=== PATIENT | male | born 1965 | race Caucasian/White ===

== ENCOUNTER 2016-11-10 16:35 | Inpatient (IN) ==
[2016-11-10] MEDS ORDERED: TUBERSOL ID ONE (17:55)
[2016-11-10] MEDS ORDERED: IMODIUM PO PRN (17:55)
[2016-11-10] MEDS ORDERED: M.V.I.-12 10 ML, FOLIC ACID 1 MG, MAGNESIUM SULFATE 1 GM, THIAMINE 100 MG in NS 1,000 ML IV ONE (17:55)
[2016-11-10] MEDS ORDERED: TYLENOL PO PRN (17:55)
[2016-11-10] MEDS ORDERED: PHENERGAN PO PRN (17:55)
[2016-11-10] MEDS ORDERED: MAALOX PLUS LIQUID PO PRN (17:55)
[2016-11-10] MEDS ORDERED: AMBIEN PO PRN (17:55)
[2016-11-10] MEDS ORDERED: SALINE LOCK IV FLUID XX ONE (17:55)
[2016-11-10] MEDS ORDERED: SENOKOT PO PRN (17:55)
[2016-11-10] MEDS ORDERED: BENTYL PO PRN (17:55)
[2016-11-10] MEDS ORDERED: ZOFRAN IV PRN (17:55)
[2016-11-10] MEDS ORDERED: DULCOLAX PR PRN (17:55)
[2016-11-10 18:38] LABS: MANUAL DIFF NEEDED? NO
[2016-11-10 18:42] LABS: BASO% 0.3 % (0.0-0.8); HEMATOCRIT 38.1 % (42.0-52.0); HEMOGLOBIN 13.1 g/dL (14.0-18.0); LYMPH# 1.33 X1000 (1.2-3.4); LYMPH% 20.9 % (20.5-51.1); MCH 29.9 PG (27-31); MCHC 34.4 g/dL (33-37); MONO# 0.45 X1000 (0.11-0.59); MONO% 7.1 % (1.7-9.3); MPV 9.9 FL (7.4-10.4); NEUT% 71.7 % (42.2-75.2); PLT 293 X1000 (130-400); RBC 4.38 XMIL (4.7-6.1)
[2016-11-10] MEDS: MOTRIN PO PRN (18:44)
[2016-11-10] MEDS: SINEMET 25/100 PO PRN (18:44)
[2016-11-10] MEDS: ROBAXIN PO PRN (18:45)
[2016-11-10] MEDS: LIBRIUM PO PRN (18:45)
[2016-11-10] MEDS: SUBOXONE 2 MG/0.5 MG SL SCH (18:45)
[2016-11-10] MEDS: NICODERM PATCH TD SCH (18:54)
[2016-11-10 18:55] LABS: INR 1.07 (0.86-1.15); PROTIME 14.2 Seconds (12.1-15.5)
[2016-11-10 18:56] LABS: PTT PL 36.9 Seconds (22.6-43.9)
[2016-11-10 19:02] LABS: AGAP 12; ALKALINE PHOSPHATASE 85 U/L (32-122); AMYLASE 26 U/L (20-200); BUN 9 mg/dL (8-22); CALCIUM 9.2 mg/dL (8.8-10.2); CHLORIDE 101 mmol/L (98-107); COSMO 274; GOT 11 U/L (10-34); GPT 6 U/L (10-44); LIPASE 15 U/L (13-60); POTASSIUM 3.8 mmol/L (3.5-5.1); SODIUM 137 mmol/L (136-145); TCO2 23 mmol/L (25-35); TOTAL PROTEIN 7.6 g/dL (6.3-8.3)
[2016-11-11] MEDS: ROBAXIN PO PRN ×4 (02:49→22:45)
[2016-11-11] MEDS: MOTRIN PO PRN ×2 (02:50→18:26)
[2016-11-11 03:37] LABS: URINE SOURCE VOIDED
[2016-11-11 04:28] LABS: UR AMPHETAMINES QUAL NONE DETECTED (NONE DETECT); UR BARBITUATES QUAL NONE DETECTED (NONE DETECT); UR BENZODIAZEPIN QUAL PRESUMPTIVE POSITIVE (NONE DETECT); UR CANNABINOIDS QUAL NONE DETECTED (NONE DETECT); UR COCAINE QUAL PRESUMPTIVE POSITIVE (NONE DETECT); UR MDMA QUAL NONE DETECTED (NONE DETECT); UR METHADONE QUAL NONE DETECTED (NONE DETECT); UR METHAMPHETAMINE QUAL NONE DETECTED (NONE DETECT); UR OPIATES QUAL PRESUMPTIVE POSITIVE (NONE DETECT); UR OXYCODONE QUAL PRESUMPTIVE POSITIVE (NONE DETECT); UR PCP QUAL NONE DETECTED (NONE DETECT); UR TCA QUAL NONE DETECTED (NONE DETECT)
[2016-11-11 05:08] LABS: BILIRUBIN URINE NEGATIVE (NEGATIVE); BLOOD URINE NEGATIVE (NEGATIVE); CLARITY SL. CLOUDY (CLEAR); COLOR YELLOW; GLUCOSE URINE NEGATIVE (NEGATIVE); LEUKOCYTES URINE TRACE (NEGATIVE); NITRITE URINE NEGATIVE (NEGATIVE); PROTEIN URINE NEGATIVE (NEGATIVE); SP GRAVITY URINE 1.015; URINE MICROSCOPIC NEEDED? YES; UROBILINOGEN URINE 1+(1 mg/dL)
[2016-11-11 05:09] LABS: URINE EPITHELIAL CELLS <10 /HPF (<10); URINE RBC <10 /HPF (<10); URINE WBC <10 /HPF (<10)
[2016-11-11] MEDS: SUBOXONE 2 MG/0.5 MG SL SCH (06:03)
[2016-11-11] MEDS: NICODERM PATCH TD SCH (08:44)
[2016-11-11] MEDS: THERA M PLUS PO SCH (08:44)
[2016-11-11] MEDS: FOLIC ACID PO SCH (08:44)
[2016-11-11] MEDS: VITAMIN B-1 PO SCH (08:44)
[2016-11-11] MEDS: LIBRIUM PO PRN ×2 (08:44→22:45)
[2016-11-11] MEDS ORDERED: NICODERM PATCH TD SCH (09:00)
[2016-11-11] MEDS ORDERED: SUBOXONE 8 MG/2 MG SL SCH (09:00)
[2016-11-11] MEDS: SUBOXONE 8 MG/2 MG SL SCH (18:15)
[2016-11-11] MEDS: SINEMET 25/100 PO PRN (22:45)
[2016-11-12] MEDS: SUBOXONE 8 MG/2 MG SL SCH (06:09)
[2016-11-12 07:56] VITALS: BP 113/69
[2016-11-12] MEDS: NICODERM PATCH TD SCH (08:23)
[2016-11-12] MEDS: THERA M PLUS PO SCH (08:23)
[2016-11-12] MEDS: VITAMIN B-1 PO SCH (08:24)
[2016-11-12] MEDS: FOLIC ACID PO SCH (08:25)
[2016-11-12] MEDS: ROBAXIN PO PRN (08:31)
[2016-11-12] MEDS: MOTRIN PO PRN (08:32)
--- NOTE | 2016-11-12 13:15 | PROGRESS NOTE ---
DATE: 11/12/2016 SUBJECTIVE: The patient notes that he is feeling somewhat better. He is still having some abdominal pain. Still having occasional nausea. Did eat breakfast this morning but otherwise states that he feels terrible. He notes he did not sleep last night. He is still having abdominal pain, cramping. Notes that his paresthesias are better. OBJECTIVE: Vital Signs: Reviewed. Temperature 97.9 degrees, pulse 75, respiratory 16, BP 162/77. General: Patient is awake, alert, oriented. He is currently in no respiratory distress. O2 saturation is 100% on room air. HEENT: Normocephalic. Neck: Supple. CV: Regular rate. Chest: Relatively clear. Nonlabored. No crackles. Abdomen: Soft. Extremities: Moves all extremities. Neurologic: No changes. Skin: Warm and dry. No rashes. LABS: Reviewed and stable. ASSESSMENT: 1. Nausea and vomiting. 2. Abdominal pain. 3. Tremors. 4. Myalgias. 5. Paresthesias. 6. Paroxysmal sweating. 7. Drug abuse, withdrawal, and stabilization. PLAN: Will continue the patient in the hospital. Will actually increase his Suboxone to 8/2 twice a day. Will continue counseling. Further orders as needed. cc: Wade Daniel MD
--- NOTE | 2016-11-13 19:28 | HISTORY AND PHYSICAL ---
CHIEF COMPLAINT: Nausea, vomiting. HISTORY OF PRESENT ILLNESS: Patient is a 51-year-old male who presented to [facility] secondary to nausea, vomiting, abdominal pain. Notes he has been using and abusing opiates. However each time he tries to stop his withdrawal symptoms become too severe and he has to start reusing to alleviate the symptoms. SOCIAL HISTORY: Patient is . Lives at home in [place]. No kids live in the house. He is on disability. SUBSTANCE ABUSE HISTORY: Patient began abusing opiates around age 37, currently he is taking morphine 0.5 to 1 g daily, started smoking at age 16, currently smokes approximately a pack a day. Started drinking caffeine at a very early age. Denies any other illicit substances. Does not drink alcohol. PAST MEDICAL HISTORY: The patient has no chronic active medical history on record. He was in a treatment facility in 2016 for approximately 3 days. ALLERGIES: None. MEDICATIONS: None. REVIEW OF SYSTEMS: CINA score is 20 secondary to frequent nausea, vomiting, cramping abdominal pain, uncontrollable shivering, frequent dry heaves, tremors with his arms at rest, frequent muscle aches, occasional paresthesias and goose flesh. Frequent sniffing, watery eyes, runny nose, moderately fidgety, unable sit still. Has tremors with arms extended. Has frequent changes in temperature and sweating. Denies any dysuria, frequency, urgency. Denies any polyuria or polydipsia. Denies any skin rashes, weight loss or weight gain. FAMILY HISTORY: Noncontributory. PHYSICAL EXAMINATION: VITAL SIGNS: Reviewed. Patient is afebrile, respiratory 20, pulse 90s. GENERAL: Patient is awake, alert. He is oriented, he is in no current respiratory distress. Speech is regular. Memory is intact. NECK: Supple. CV: Regular rate and rhythm. CHEST: Relatively clear. ABDOMEN: Soft, nondistended. EXTREMITIES: Moves all extremities. NEURO: No focal neurological changes. SKIN: Warm dry no rashes. LABS: Pending. ASSESSMENT: 1. Nausea, vomiting. 2. Abdominal pain. 3. Tremors. 4. Myalgias. 5. Paresthesias . 6. Opiate abuse, withdrawal and stabilization. 7. Chronic tobacco abuse. PLAN: Discussed with patient perils of smoking as well as ways to stop. Discussed with him opiate use, abuse. Discussed with him Suboxone versus weaning totally off. Patient desires to attempt to stay on Suboxone at this point. cc: Wade Daniel MD
--- NOTE | 2016-11-13 19:33 | DISCHARGE SUMMARY ---
ADMISSION DATE: 11/10/2016 DISCHARGE DATE: 11/12/2016 CONSULTATION: None. PROCEDURES: None. BRIEF HOSPITAL COURSE: Patient is a 51-year-old male who [facility] as noted on HPI secondary to nausea, vomiting, frequent abdominal pain, tremors with arms extended. He was placed on Suboxone which he tolerated very well. On discharge patient is awake, alert. He is currently in no respiratory distress. He is feeling much better. DISPOSITION: Thirty-five minutes was spent in discharge planning and instructions. Discussed with patient use, abuse. Discussed with him he needs to avoid all persons, places, situations which he has been using and abusing in the past. Discussed with him outpatient life counseling as well as drug counseling. Discussed with him how to stop smoking and reasons to do so. The patient will be discharged home with a prescription for Suboxone 02/16. He will follow up outpatient with treatment facility of choice. cc: Wade Daniel MD
== END 2016-11-12 11:12 | disposition home or self-care (01) ==
LOC: EDSEX → P.DIRADM 16:35 → P.MEDSURG 16:45
PROVIDERS: ADMIT Family Medicine; ATTEND Family Medicine